=== PATIENT | female | born 1960 | race African-American/Black ===

== ENCOUNTER 2019-05-28 21:22 | Inpatient (IN) ==
[2019-05-28] MEDS ORDERED: KETOROLAC 30 MG/1 ML VIAL IV STA (21:44)
[2019-05-28] MEDS ORDERED: CLINDAMYCIN INJ 900 MG in PREMIX 1 EACH IV STA (21:44)
[2019-05-28 22:08] LABS: Basophils % 0.1 % (0.0-0.8); Eosinophils # 0.2 10*3/uL (0.0-0.87); Eosinophils % 2.2 % (0.00-10.9); Hematocrit 32.4 VOL% (35.7-47.0); Hemoglobin 10.7 GM/DL (12.0-16.0); Immature Granulocytes % 0.4 %; Immature Granulocytes Absolute 0.03 #; Lymphocytes # 2.1 10*3/uL (1.4-4.0); Lymphocytes % 29.9 % (21.3-54.2); Mean Corpuscular Volume 79.6 FL (87-102); Mean Platelet Volume 9.1 FL (9.6-12.0); Monocytes % 6.4 % (1.7-12.7); Platelet Count 235 T/CUMM (130-400); Red Blood Count 4.07 MC/CUMM (3.8-5.5); Red Cell Distribution Width 14.4 % (9.3-17.3); White Blood Count 6.9 T/CUMM (4-12)
[2019-05-28 22:20] LABS: INR 0.9; Partial Thromboplastin Time 23.3 SECS (20.8-36.0)
[2019-05-28 22:26] LABS: Alanine Aminotransferase 20 U/L (13-56); Albumin 2.9 G/DL (3.4-5.0); Alkaline Phosphatase 95 U/L (45-117); Aspartate Amino Transferase 18 U/L (0-37); Bilirubin,Total < 0.39 MG/DL (0.2-1.0); Blood Urea Nitrogen 11 MG/DL (7-18); Calcium 8.8 MG/DL (8.5-10.1); Estimated Glom Filtration Rate 100 ML/MIN; Glucose 119 MG/DL (74-106); Osmolality,Calculated 272.8 MOS/KG (273-304); Total Protein 9.3 G/DL (6.4-8.3)
[2019-05-28 22:32] LABS: Eosinophils 1 % (0-10); Hypochromasia Slight; Lymphocytes 29 % (20-55); Platelet Estimate Normal; Segmented Neutrophils 66 % (50-85); Total Cells Counted 100
[2019-05-28 22:34] LABS: Microcytosis 2+
[2019-05-29] MEDS ORDERED: ACETAMINOPHEN 325 MG TABLET PO PRN (00:18)
[2019-05-29] MEDS ORDERED: ZALEPLON 5 MG CAPSULE PO PRN (00:18)
[2019-05-29 08:23] LABS: Basophils % 0.4 % (0.0-0.8); Eosinophils # 0.2 10*3/uL (0.0-0.87); Eosinophils % 3.4 % (0.00-10.9); Hematocrit 31.7 VOL% (35.7-47.0); Hemoglobin 10.3 GM/DL (12.0-16.0); Immature Granulocytes % 0.4 %; Immature Granulocytes Absolute 0.02 #; Lymphocytes % 35.3 % (21.3-54.2); Mean Corpuscular HGB Conc 32.5 GM/DL (32-36); Mean Corpuscular Volume 79.4 FL (87-102); Mean Platelet Volume 9.5 FL (9.6-12.0); Monocytes % 9.2 % (1.7-12.7); Neutrophils % 51.3 % (38.7-73.9); Platelet Count 228 T/CUMM (130-400); Red Blood Count 3.99 MC/CUMM (3.8-5.5); Red Cell Distribution Width 14.3 % (9.3-17.3); White Blood Count 5.7 T/CUMM (4-12)
[2019-05-29 08:36] LABS: Albumin 2.8 G/DL (3.4-5.0); Bilirubin,Total 0.6 MG/DL (0.2-1.0); Calcium 9.2 MG/DL (8.5-10.1); Osmolality,Calculated 268.1 MOS/KG (273-304)
[2019-05-29 08:44] LABS: Eosinophils 6 % (0-10); Hypochromasia 1+; Lymphocytes 25 % (20-55); Microcytosis 1+; Segmented Neutrophils 65 % (50-85); Total Cells Counted 100
[2019-05-29 08:45] LABS: Platelet Estimate Normal
[2019-05-29] MEDS: PANTOPRAZOLE 40 MG TABLET PO SCH (09:44)
[2019-05-29] MEDS: lisinopriL 20 MG TABLET PO SCH (09:44)
[2019-05-29] MEDS: VANCOMYCIN INJ 1,250 MG in SODIUM CHLORIDE 0.9% 250 ML IV SCH ×2 (09:45→20:21)
[2019-05-29] MEDS: DILTIAZEM 30 MG TABLET PO SCH ×2 (09:45→20:21)
[2019-05-30 07:45] LABS: Albumin 2.7 G/DL (3.4-5.0); Bilirubin,Total 0.4 MG/DL (0.2-1.0); Calcium 8.8 MG/DL (8.5-10.1); Osmolality,Calculated 272.8 MOS/KG (273-304); Total Protein 8.8 G/DL (6.4-8.3)
[2019-05-30 08:20] LABS: Basophils % 0.2 % (0.0-0.8); Eosinophils # 0.2 10*3/uL (0.0-0.87); Eosinophils % 3.2 % (0.00-10.9); Hematocrit 30.8 VOL% (35.7-47.0); Hemoglobin 10.4 GM/DL (12.0-16.0); Immature Granulocytes % 0.4 %; Immature Granulocytes Absolute 0.02 #; Mean Corpuscular HGB Conc 33.8 GM/DL (32-36); Mean Corpuscular Volume 77.4 FL (87-102); Mean Platelet Volume 9.3 FL (9.6-12.0); Monocytes % 7.2 % (1.7-12.7); Platelet Count 238 T/CUMM (130-400); Red Blood Count 3.98 MC/CUMM (3.8-5.5); Red Cell Distribution Width 14.3 % (9.3-17.3); White Blood Count 4.7 T/CUMM (4-12)
[2019-05-30 08:41] LABS: Eosinophils 2 % (0-10); Lymphocytes 41 % (20-55); Segmented Neutrophils 48 % (50-85); Total Cells Counted 100
[2019-05-30 08:42] LABS: Atypical Lymphocytes Few; Hypochromasia 1+; Microcytosis Slight; Platelet Estimate Normal
[2019-05-30] MEDS: lisinopriL 20 MG TABLET PO SCH (09:06)
[2019-05-30] MEDS: VANCOMYCIN INJ 1,250 MG in SODIUM CHLORIDE 0.9% 250 ML IV SCH ×2 (09:06→20:32)
[2019-05-30] MEDS: DILTIAZEM 30 MG TABLET PO SCH ×2 (09:06→20:31)
[2019-05-30] MEDS: PANTOPRAZOLE 40 MG TABLET PO SCH (09:07)
[2019-05-30] MEDS: methylPREDNISolone SOD SUC 40 MG/1 ML VIAL IV SCH (14:30)
[2019-05-31] MEDS: methylPREDNISolone SOD SUC 40 MG/1 ML VIAL IV SCH (02:41)
[2019-05-31 07:03] LABS: Hematocrit 34.4 VOL% (35.7-47.0); Immature Granulocytes % 0.4 %; Immature Granulocytes Absolute 0.02 #; Lymphocytes # 1.3 10*3/uL (1.4-4.0); Mean Platelet Volume 9.8 FL (9.6-12.0); Monocytes % 4.9 % (1.7-12.7); Neutrophils % 67.7 % (38.7-73.9); Platelet Count 305 T/CUMM (130-400); Red Cell Distribution Width 14.3 % (9.3-17.3); White Blood Count 4.9 T/CUMM (4-12)
[2019-05-31 07:27] LABS: Lymphocytes 20 % (20-55); Segmented Neutrophils 78 % (50-85); Total Cells Counted 100
[2019-05-31 07:28] LABS: Hypochromasia 2+; Platelet Estimate Normal; Polychromasia Slight
[2019-05-31 07:30] LABS: Albumin 3.1 G/DL (3.4-5.0); Bilirubin,Total 0.6 MG/DL (0.2-1.0); Calcium 9.7 MG/DL (8.5-10.1); Osmolality,Calculated 267.4 MOS/KG (273-304); Total Protein 10.2 G/DL (6.4-8.3)
[2019-05-31 07:30] LABS: Parathyroid Hormone Intact 28.1 PG/ML (18.4-80.1)
[2019-05-31] MEDS: lisinopriL 20 MG TABLET PO SCH (08:55)
[2019-05-31] MEDS: PANTOPRAZOLE 40 MG TABLET PO SCH (08:55)
[2019-05-31] MEDS: DILTIAZEM 30 MG TABLET PO SCH (08:55)
[2019-05-31] MEDS: VANCOMYCIN INJ 1,250 MG in SODIUM CHLORIDE 0.9% 250 ML IV SCH (08:55)
[2019-05-31 12:10] VITALS: BP 154/91
== END 2019-05-31 14:05 | disposition home or self-care (01) | DRG 383 ==
LOC: N.ED 21:22 → N.EDINP 21:22 → N.5E 05-29 02:14
PROVIDERS: ADMIT Internal Medicine; ATTEND Internal Medicine